=== PATIENT | female | born 1975 | race Caucasian/White ===

== ENCOUNTER 2017-02-24 03:21 | Emergency (ER) | payer OTHER ==
[~2017-02-24] VITALS: Ht 160 cm; Wt 48.7 kg
[~2017-02-24 03:21] MED LIST: PRENTAB26 PO
[2017-02-24 03:27] VITALS: TEMP 36.9; Ht 160 cm; Wt 48.7 kg
--- NOTE | 2017-02-24 03:57 | EMERGENCY ROOM VISIT NOTE ---
History Report prepared by Imelda: Randy House Under the Supervision of: Dr. Abdias Hernadez D.O. First contact with patient: 03:32 Chief Complaint: ANXIETY Stated Complaint: SHAKING,NUMB FACE History of Present Illness The patient is a 41 year old female who presents to the Emergency Room with complaints of constant, dull facial numbness beginning 2 hours ago. She currently rates her discomfort a 1/10 in severity. The patient states that she was arguing with her son, and her symptoms began after the argument. She reports that she went for a drive after the argument and ended at [facility]. The patient notes that she left [facility], but does not remember driving home. She reports she only remembers having the heat on because she was very cold. The patient complains of chills, diaphoresis, facial twitching, stuttering, and not being able of formulating words. She denies having a headache, blurred vision, and a seizure. The patient's son states that when she arrived home, she had a blank look on her face, and she was not aware of her surroundings. She reports that she was able to drink water. The patient denies having a history of anxiety attacks and similar symptoms. Source of History: patient, family Onset: 2 hours ago Position: other (face) Symptom Intensity: 1/10 Quality: dull Timing: constant Associated Symptoms: + chills, + diaphoresis, No headache Note: The patient complains of facial twitching, stuttering, and not being able of formulating words. She denies having a seizure and vision changes. Review of Systems See HPI for pertinent positives and negatives. A total of ten systems were reviewed and were otherwise negative. Family History No pertinent family history stated. Social History Smoking Status: Never Smoker Alcohol Use: none Drug Use: none Marital Status: Housing Status: lives with family Occupation Status: other Current/Historical Medications No Active Prescriptions or Reported Meds Allergies Coded Allergies: No Known Allergies (Verified , 02/24/17) Physical Exam Vital Signs Date Time Temp Pulse Resp B/P Pulse Ox O2 Delivery O2 Flow Rate FiO2 02/24/17 03:51 73 02/24/17 03:27 36.9 90 18 109/60 99 Room Air Physical Exam GENERAL: Awake, alert, well-appearing, in no distress HENT: Normocephalic, atraumatic. Oropharynx unremarkable. EYES: Normal conjunctiva. Sclera non-icteric. NECK: Supple. No nuchal rigidity. FROM. No JVD. RESPIRATORY: Clear to auscultation. CARDIAC: Regular rate, normal rhythm. Extremities warm and well perfused. Pulses equal. ABDOMEN: Soft, non-distended. No tenderness to palpation. No rebound or guarding. No masses. RECTAL: Deferred. MUSCULOSKELETAL: Chest examination reveals no tenderness. The back is symmetrical on inspection without obvious abnormality. There is no CVA tenderness to palpation. No joint edema. LOWER EXTREMITIES: Calves are equal size bilaterally and non-tender. No edema. No discoloration. NEURO: Normal sensorium. No sensory or motor deficits noted. NIH score of 0. SKIN: No rash or jaundice noted. PSYCH: Anxious. Medical Decision & Procedures ER Provider Diagnostic Interpretation: Radiology results as stated below per my review and radiologist interpretation CT HEAD: No evidence of acute intracranial abnormality. Air-fluid level in the left maxillary sinus suggestive of acute sinusitis along with opacities in the inferior frontal sinuses and several ethmoid air cells. Correlate clinically for sinusitis. Radiologist: Tanya Wood MD Study ready at 04:06 and initial results transmitted at 04:42. ED Course 0337: The patient was evaluated in room A10. A complete history and physical exam was performed. 0450: I reevaluated the patient. She is resting and in no distress. NIH score of 0. She no longer has facial numbness. Discussed results and discharge instructions: she verbalized understanding and agreement. The patient is ready for discharge. Medical Decision Anxiety, panic attack, hyperventilation, facial numbness. Resting in no distress on repeat examination 4:50 AM. Patient is nonfocal neurologically he states no further facial numbness. I suspect that this may have been an anxiety or panic attack with hyperventilation. Patient's CAT scan is normal I discussed the finding with the patient's and her at bedside. Impression Primary Impression: Acute anxiety Additional Impression: Facial numbness Scribe Attestation The scribe's documentation has been prepared under my direction and personally reviewed by me in its entirety. I confirm that the note above accurately reflects all work, treatment, procedures, and medical decision making performed by me. Departure Information Dispostion Home / Self-Care Prescriptions No Active Prescriptions or Reported Meds Referrals Mike Castillo M.D.(YASMIN) (PCP) Patient Instructions Anxiety Body Response, ED Paraesthesias, My [facility] Problem Qualifiers
[2017-02-24 04:58] VITALS: BP 107/58; PULSE 75; O2SAT 97
--- NOTE | 2017-02-24 07:10 | DIAGNOSTIC IMAGING REPORT ---
HEAD CT NONCONTRAST CT DOSE: 537.48 mGy.cm HISTORY: numbness TECHNIQUE: Multiaxial CT images of the head were performed without the use of intravenous contrast. Automated exposure control was utilized for this study. Comparison: None. Findings: Fluid levels within the anterior ethmoid air cells and left maxillary sinus. The mastoid air cells appear clear. The calvarium and skull base are intact. The ventricles and sulci are within normal limits. There is no mass, hematoma, midline shift, or acute infarct. Impression: No acute intracranial abnormality. Acute paranasal sinusitis. Electronically signed by: Winston Woodward M.D. 02/24/2017 7:09 AM Dictated Date/Time: 02/24/2017 7:08 AM
== END 2017-02-24 04:59 | disposition home or self-care (01) ==
LOC: C.EDB 03:22 → C.EDA 04:59
DX: F41.9 Anxiety disorder, unspecified (principal); R20.0 Anesthesia of skin